=== PATIENT | male | born 1995 | race Caucasian/White ===

== ENCOUNTER 2023-06-22 07:03 | Outpatient (CLI) | payer MEDICAID, SELFPAY | END 2023-06-22 07:04 | disposition home or self-care (01) | LOC: NFLDREF 07:04 | PROVIDERS: PCP Family Medicine; Visit Provider Family Medicine | DX: R30.0 Dysuria (principal) | CPT/HCPCS: 87086 ==

== ENCOUNTER 2023-06-23 08:10 | Outpatient (CLI) | payer MEDICAID, SELFPAY | END 2023-06-23 08:11 | disposition home or self-care (01) | LOC: NFLDREF 06-26 12:53 | PROVIDERS: PCP Family Medicine; Referring Provider Family Medicine; Visit Provider Family Medicine | DX: R82.2 Biliuria (principal) | CPT/HCPCS: 80053 ==

== ENCOUNTER 2024-03-16 10:07 | Outpatient (CLI) | payer MEDICAID, SELFPAY ==
--- OUTSIDE RECORDS SUMMARY | 2024-03-16 10:09 | XMS_ITS | Clinical Summary ---
Author Organization [facility] Address [place], [place] [address] Care Team Providers Care Telephone Mechanic Name Role Phone Pcp, No Primary Care Provider Unavailabl e Allergies No known active allergies Medications Medication Sig Dispensed Refills Start Date End Date Status busPIRone (BUSPAR) 10 mg tablet TK 1 AND 1/ TS PO BID 3 05/12/2017 Active sertraline (ZOLOFT) 50 mg tablet TK 3 AND 1/ TS PO D 0 05/02/2017 Active Social History Tobacco Use Types Packs/Day Years Used Date Smoking Tobacco: Never Tobacco Cessation:Counseling Given: Yes Sex and Gender Information Value Date Recorded Sex Assigned at Not on file Gender Identity Not on file Sexual Orientation Not on file Obstetrics History Last Filed Vital Signs Vital Sign Reading Time Taken Comments Blood Pressure 122/79 05/24/2017 3:05 PM CDT Pulse 71 05/24/2017 3:05 PM CDT Temperature - - Respiratory Rate - - Oxygen Saturation 100% 05/24/2017 3:05 PM CDT Inhaled Oxygen Concentration - - Weight - - Height - - Body Mass Index - - Plan of Treatment Health Maintenance Due Date Last Done Comments Tdap 2006 Depression screening for age 12+ 2007 HIV for age 15-65 2010 BMI (ht and wt on same day) for age 18+ 2013 Hepatitis C screening for ag e 18-79 2013 Tetanus booster 2015 COVID-19 vaccine series (2022- season) 2023 Influenza for age 9-49 05/20/2024 Pneumococcal series for age 6-64 Aged Out No longer eligible based on patient's age to complete this topic Care Teams Telephone Mechanic Relationship Specialty Start Date End Date Pcp, No . PCP - General 05/13/17
== END 2024-03-16 10:08 | disposition home or self-care (01) ==
LOC: FBOREF 10:07
PROVIDERS: PCP Family Medicine; Visit Provider Family Medicine
DX: Z13.6 Encounter for screening for cardiovascular disorders (principal)
CPT/HCPCS: 80061